=== PATIENT | male | born 1990 | race Caucasian/White ===

== ENCOUNTER 2020-04-29 10:02 | Emergency (ER) | payer SELFPAY ==
[2020-04-29 10:10] VITALS: BP 160/96; PULSE 67; RESP 16; TEMP 36.2; O2SAT 99; BMI 18.6
--- NOTE | 2020-04-29 10:36 | W.ED.DENTAL ---
HPI - Dental/Oral General: Chief complaint: Dental/Oral Stated complaint: POSS DENTAL PAIN Time Seen by Provider: 04/29/20 10:09 History of Present Illness: HPI Narrative: Patient complains about jaw pain right side hurts to eat denies that hot and cold bothers teeth does have wheezing to still down the right side left side is starting to break through the skin Teeth map: 1. Onset (ago): day(s) Duration: constant Severity: moderate Severity scale (1-10): 5 Relieving factors: nothing Exacerbating factors: chewing Context: history of dental caries Associated symptoms: Reports no associated symptoms Treatment prior to arrival: oral analgesic [facility] ED PFSH: Medical History (Updated 04/29/20 @ 10:39 by JAYESH Simmons) Epilepsy Family History Mother Multiple sclerosis Social History Smoking and tobacco status: current every day smoker Alcohol intake: current Alcohol intake frequency: other Physical Exam Const: COMMON NORMALS: no acute distress HENMT: TEETH & GINGIVA IMAGES: 1. Pain swelling appears possibly be impacted tooth 2. Pain Psych: COMMON NORMALS: mental status grossly normal Course Vital Signs: Vital signs: Vital Signs Temperature 97.2 F L 04/29/20 10:10 Pulse Rate 57 L 04/29/20 11:00 Respiratory Rate 18 04/29/20 11:00 Blood Pressure 129/80 04/29/20 11:00 Pulse Oximetry 98 04/29/20 11:00 Discharge Plan Discharge Patient Disposition: Home Clinical Impression: Dental caries Condition: Stable Prescriptions: New tramadol 50 mg tablet 50 mg PO Q8H PRN (Reason: pain) Qty: 10 RF: 0 clindamycin HCl 300 mg capsule 300 mg PO TID 7 Days Qty: 21 RF: 0 Discharge Orders: Discharge Order (Routine); Ordered 04/29/20 Ordered By: Kale Awan Discharge Diet: Usual diet Discharge Activity: Increase activity as tolerated Patient Instructions: Dental Caries (ED) Activity Restrictions/Additional Instructions: Follow-up with medical provider as directed. Take medications as prescribed. Return to the ER or your medical provider if condition worsens. Please read and understand discharge instructions. If any questions ask please. Follow-up dentist as soon as possible Coding Level of Care Code ED Full Charge Bookkeeper for Chg Fwd Exam Expanded Problem Focused
[2020-04-29 11:00] VITALS: BP 129/80; PULSE 57; RESP 18; O2SAT 98
== END 2020-04-29 11:11 | disposition home or self-care (01) ==
PROVIDERS: Emergency Provider Nurse Practitioner Family
DX: K02.9 Dental caries, unspecified (principal); F17.210 Nicotine dependence, cigarettes, uncomplicated
CPT/HCPCS: 12345; 99281

== ENCOUNTER 2020-09-07 12:39 | Emergency (ER) | payer SELFPAY ==
[2020-09-07 12:48] VITALS: BP 130/85; PULSE 80; RESP 14; TEMP 36.7; O2SAT 98; BMI 19.3
--- NOTE | 2020-09-07 12:56 | ED_ITS ---
HPI - Dental/Oral General: Chief complaint: Dental/Oral Stated complaint: Pain/swelling on left side of mouth Time Seen by Provider: 09/07/20 12:42 Source: patient Mode of arrival: ambulatory Limitations: no limitations History of Present Illness: HPI Narrative: Patient is a nice 30-year-old male who presents to ED today with complaints of dental pain, a cracked tooth, and facial swelling. Patient states he has noticed over the last few days pain to one of his right lower molars. He states when he woke up this morning he noticed the right side of his face was swollen. He has not been running fevers. Patient is still able to eat and drink normally. MD Complaint: tooth pain and tooth injury Teeth map: 1. cracked tooth; pain Onset (ago): day(s) Duration: constant Severity: moderate Associated symptoms: Denies ear or mastoid pain or fever(s) Review of Systems Const: Denies: fever(s) or chills ENMT: Reports: dental pain; Denies: swelling of lips/tongue, bleeding gums, ear or mastoid pain or nasal congestion Card: Denies: chest pain Resp: Denies: dyspnea GI: Denies: nausea or vomiting Musc: Denies: neck pain Skin/Breast: Denies: rash Neuro: Denies: headache(s) PFS ED PFSH: Medical History (Updated 09/07/20 @ 12:56 by PAGE Zee) Epilepsy Family History Mother Multiple sclerosis Social History Smoking and tobacco status: current every day smoker Alcohol intake: current Alcohol intake frequency: other Physical Exam Const: COMMON NORMALS: no acute distress, average body habitus, patient oriented x3, no limitations, healthy appearing, alert and well nourished HENMT: COMMON NORMALS: normocephalic and atraumatic HEAD & SCALP: normocephalic and atraumatic FACE & SINUS: other (R sided lower facial swelling; no abscess; no submandibular swelling) TEETH & GINGIVA: Yes other (floor of mouth is soft and non-elevated ) THROAT: posterior oropharynx normal Neck/C-Spine: COMMON NORMALS: full ROM and no lymphadenopathy Resp: COMMON NORMALS: normal respiratory effort and clear to auscultation bilaterally AUSCULTATION: clear to auscultation bilaterally Cardio: COMMON NORMALS: regular rate and regular rhythm RATE: regular rate RHYTHM: regular rhythm Neuro: COMMON NORMALS: patient oriented x3 SENSORIUM/ORIENTATION: Yes alert Skin: COMMON NORMALS: no rashes or lesions noted GENERAL SKIN EXAM: no rashes or lesions noted Course Vital Signs: Vital signs: Vital Signs Temperature 98.0 F 09/07/20 12:48 Pulse Rate 80 09/07/20 12:48 Respiratory Rate 14 09/07/20 12:48 Blood Pressure 130/85 09/07/20 12:48 Pulse Oximetry 98 09/07/20 12:48 Discharge Plan Discharge Patient Disposition: Home Clinical Impression: Cracked tooth, Dental infection Condition: Stable Prescriptions: New penicillin V potassium 500 mg tablet 500 mg PO Q8H 7 Days Qty: 21 RF: 0 No Action tramadol 50 mg tablet 50 mg PO Q8H PRN (Reason: pain) Qty: 10 RF: 0 Discharge Orders: Discharge ED (Routine); Ordered 09/07/20 Ordered By: Sulema Arciniega Patient Instructions: Dental Abscess (ED), Dental Caries (ED), Toothache (ED) Activity Restrictions/Additional Instructions: As discussed please contact your dentist on Wednesday to schedule a follow-up appointment. You may return to the emergency department for worsening pain or worsening facial swelling despite antibiotics. Coding Level of Care Code ED Medical Coordinator Pesticide Use for Apolinar Antunez
== END 2020-09-07 13:02 | disposition home or self-care (01) ==
PROVIDERS: Emergency Provider Physician Assistant
DX: K03.81 Cracked tooth (principal); K04.7 Periapical abscess without sinus; F17.210 Nicotine dependence, cigarettes, uncomplicated
CPT/HCPCS: 12345; 99281

== ENCOUNTER → 2023-05-23 14:26 | Outpatient (BNVA) | payer OTHER, SELFPAY | PROVIDERS: Visit Provider Registered Nurse Neonatal Intensive Care | DX: S99.921A Unspecified injury of right foot, initial encounter (principal); W22.8XXA Striking against or struck by other objects, initial encounter | CPT/HCPCS: 73630 ==

== ENCOUNTER → 2024-10-04 12:49 | Outpatient (BNVA) | payer BC, SELFPAY | PROVIDERS: Visit Provider Family Medicine | DX: R39.9 Unspecified symptoms and signs involving the genitourinary system (principal) | CPT/HCPCS: 81000 ==

== ENCOUNTER → 2024-11-30 11:20 | Outpatient (BNVA) | payer BC, SELFPAY | DX: R39.15 Urgency of urination (principal); R39.9 Unspecified symptoms and signs involving the genitourinary system | CPT/HCPCS: 81000; 87086 ==

== ENCOUNTER 2024-12-20 15:57 | Emergency (ER) | payer SELFPAY ==
[2024-12-20 16:25] VITALS: BP 141/73; PULSE 68; RESP 16; TEMP 36.5; O2SAT 98; BMI 18.6
[2024-12-20 16:39] LABS: Basophils # 0.1 10^3/uL (0.0-0.1); Basophils % 1.2 %; Eosinophils # 0.2 10^3/uL (0.0-0.8); Eosinophils % 2.5 %; Hematocrit 44.7 % (37-53); Lymphocytes # 2.4 10^3/uL (0.8-4.8); Lymphocytes % 32.7 %; Mean Corpuscular HGB Conc 33.6 g/dL (30-55); Mean Corpuscular Hemoglobin 30.4 pg (27-33); Mean Corpuscular Volume 90.7 fl (82-101); Mean Platelet Volume 10.3 fL (7.4-10.4); Monocytes # 0.7 10^3/uL (0.2-0.9); Neutrophils # 3.91 10^3/uL (1.8-7.7); Neutrophils % 53.3 %; Nucleated Red Blood Cells % 0 %; Platelet Count 214 10^3/cmm (157-399); Red Blood Count 4.93 10^6/uL (3.85-5.65); Red Cell Distribution Width 13.1 % (12.1-15.1); White Blood Count 7.32 10^3/uL (3.29-11.43)
[2024-12-20 17:13] LABS: Alanine Aminotransferase 18 U/L (0-41); Albumin Level 4.7 g/dL (3.5-5.2); Alkaline Phosphatase 58 U/L (40-130); Anion Gap 16.8 (5-19); Aspartate Amino Transferase 21 U/L (0-40); Blood Urea Nitrogen 16 mg/dL (6-20); Calcium 9.6 mg/dL (8.5-10.5); Carbon Dioxide 25 mmol/L (22-29); Chloride 102 mmol/L (98-107); Creatinine Clr Calc Pharmacy 88.4505; Globulin 2.6 g/dL (1.3-4.6); Glomerular Filtration Rate 86.6 mL/min (90-130); Glucose 104 mg/dL (65-115); Lipase 27 U/L (13-60); Osmolality Calculated 291 mOsm/kg (285-295); Potassium 3.8 mmol/L (3.5-5.1); Sodium 140 mmol/L (136-145); Total Bilirubin 0.7 mg/dL (0.15-1.2); Total Protein 7.3 g/dL (6.6-8.7)
--- NOTE | 2024-12-20 17:28 | ECG_ITS ---
[facility] Test Date: 2024-12-20 Pat Name: Agus Ratliff Department: Room: Gender: Male Hand Sample Maker: : 1990 Requested By: Zaria Melton Order Number: [id number] Louisa MD: VA LING Measurements Intervals [place] Rate: 48 P: 53 AL: 102 QRS: 97 QRSD: 111 T: 70 QT: 376 QTc: 339 Interpretive Statements SINUS BRADYCARDIA WITH SHORT AL INTERVAL BORDERLINE RIGHT AXIS DEVIATION [QRS AXIS > 90] MODERATE INTRAVENTRICULAR CONDUCTION DELAY [110+ ms QRS DURATION] Compared to ECG 05/30/2019 00:17:28 Intraventricular conduction delay now present Electronically Signed On 12-21-2024 23:31:15 CDT by VA LING [email or web address]
--- NOTE | 2024-12-20 17:37 | ED_ITS ---
Documented by User: Zaria Melton MD 12/20/24 17:43 HPI - Weakness 2 General: Chief complaint: Weakness Stated complaint: light headed, dizzy Time Seen by Provider: 12/20/24 17:32 Source: patient Mode of arrival: ambulatory Limitations: no limitations History of Present Illness: 34-year-old male states he had a syncopa l event earlier today states that he had felt lightheaded got up and passed out states he did hit his posterior head has a small hematoma complains of slight headache. States he has been having urinary symptoms for sometimes burning when he urinates denies any testicle pain. Denies any chest pain blood pressure here is normal Associated symptoms: Reports dysuria; Denies chest pain, chills, fever(s), headache(s), nausea or vomiting Review of Systems 2 Const: Denies: fever(s), chills, body aches or change in appetite ENMT: Denies: throat pain or dental pain Card: Denies: chest pain Resp: Denies: dyspnea GI: Denies: abdominal pain, nausea, vomiting or diarrhea : Reports: dysuria Musc: Denies: neck pain or back pain Skin/Breast: Denies: rash Neuro: Denies: headache(s) PFSH ED 2 PFSH: Medical History (Updated 12/20/24 @ 18:38 by Tracy Ha MD) Epilepsy Family History Mother Multiple sclerosis Social History Smoking and tobacco/nicotine status: never used tobacco/nicotine Alcohol intake: current Alcohol intake frequency: other Substance/Drug Use: current Substance/Drug use frequency: other Physical Exam 2 Const: COMMON NORMALS: no acute distress, patient oriented x3 and healthy appearing HENMT: COMMON NORMALS: normocephalic and atraumatic HEAD & SCALP: n ormocephalic and atraumatic Eye: COMMON NORMALS: conjunctivae normal CONJUNCTIVA: Yes conjunctivae normal Neck/C-Spine: COMMON NORMALS: full ROM and supple Chest: COMMONS NORMALS: normal inspection of the chest and normal palpation of entire chest wall Resp: COMMON NORMALS: normal respiratory effort, No retractions, No use of accessory muscles and clear to auscultation bilaterally AUSCULTATION: clear to auscultation bilaterally Cardio: COMMON NORMALS: regular rate, regular rhythm and No murmurs present (Cardio) RATE: regular rate RHYTHM: regular rhythm GI: COMMON NORMALS: Normal to inspection, nondistended, normoactive bowel sounds present, Soft to palpation, non-tender and no masses PALPATION: Yes Soft to palpation Extremity: COMMON NORMALS: normal to inspection and full ROM Neuro: COMMON NORMALS: patient oriented x3, moves all extremities and no focal motor deficits Psych: COMMON NORMALS: mental status grossly normal, Normal thought process present and cooperative THOUGHT PROCESS: Normal thought process present Skin: COMMON NORMALS: no rashes or lesions noted and no wounds GENERAL SKIN EXAM: no rashes or lesions noted Course 2 Vital Signs: Vital signs: Vital Signs Temperature 97.7 F 12/20/24 16:25 Pulse Rate 57 L 12/20/24 18:25 Respiratory Rate 16 12/20/24 16:25 Blood Pressure 127/63 12/20/24 18:25 Pulse Oximetry 97 12/20/24 18:25 Oxygen Delivery Me thod Room Air 12/20/24 16:25 MDM - Weakness Medical Records I reviewed the patient's medical records. Lab Data I reviewed the patient's lab results. 12/20/24 16:18 12/20/24 16:18 Laboratory Results WBC 7.32 10^3/uL (3.29-11.43) 12/20/24 16:18 RBC 4.93 10^6/uL (3.85-5.65) 12/20/24 16:18 Hgb 15.00 g/dL (11.27-16.99) 12/20/24 16:18 Hct 44.7 % (37-53) 12/20/24 16:18 MCV 90.7 fl (82-101) 12/20/24 16:18 MCH 30.4 pg (27-33) 12/20/24 16:18 MCHC 33.6 g/dL (30-55) 12/20/24 16:18 RDW 13.1 % (12.1-15.1) 12/20/24 16:18 Plt Count 214 10^3/cmm (157-399) 12/20/24 16:18 MPV 10.3 fL (7.4-10.4) 12/20/24 16:18 Neut % (Auto) 53.3 % 12/20/24 16:18 Lymph % (Auto) 32.7 % 12/20/24 16:18 [place] % (Auto) 10.0 % 12/20/24 16:18 Eos % (Auto) 2.5 % 12/20/24 16:18 Baso % (Auto) 1.2 % 12/20/24 16:18 Neut # (Auto) 3.91 10^3/uL (1.8-7.7) 12/20/24 16:18 Lymph # (Auto) 2.4 10^3/uL (0.8-4.8) 12/20/24 16:18 [place] # (Auto) 0.7 10^3/uL (0.2-0.9) 12/20/24 16:18 Eos # (Auto) 0.2 10^3/uL (0.0-0.8) 12/20/24 16:18 Baso # (Auto) 0.1 10^3/uL (0.0-0.1) 12/20/24 16:18 Nucleated RBC % (auto) 0 % 12/20/24 16:18 Nucleated RBCs # 0.0 /100WBC 12/20/24 16:18 Sodium 140 mmol/L (136-145) 12/20/24 16:18 Potassium 3.8 mmol/L (3.5-5.1) 12/20/24 16:18 Chloride 102 mmol/L (98-107) 12/20/24 16:18 Carbon Dioxide 25 mmol/L (22-29) 12/20/24 16:18 Anion Gap 16.8 (5-19) 12/20/24 16:18 BUN 16 mg/dL (6-20) 12/20/24 16:18 Creatinine 1.0 mg/dL (0.7-1.2) 12/20/24 16:18 GFR Calculation 86.6 mL/min (90-130) L 12/20/24 16:18 Glucose 104 mg/dL (65-115) 12/20/24 16:18 Calculated Osmolality 291 mOsm/kg (285-295) 12/20/24 16:18 Calcium 9.6 mg/dL (8.5-10.5) 12/20/24 16:18 Total Bilirubin 0.7 mg/dL (0.15-1.2) 12/20/24 16:18 AST 21 U/L (0-40) 12/20/24 16:18 ALT 18 U/L (0-41) 12/20/24 16:18 Alkaline Phosphatase 58 U/L (40-130) 12/20/24 16:18 Total Protein 7.3 g/dL (6.6-8.7) 12/20/24 16:18 Albumin 4.7 g/dL (3.5-5.2) 12/20/24 16:18 Globulin 2.6 g/dL (1.3-4.6) 12/20/24 16:18 Lipase 27 U/L (13-60) 12/20/24 16:18 Urine Color Yellow (Yellow) 12/20/24 17:31 Urine Appearance Turbid (CLEAR) A 12/20/24 17:31 Urine pH 7.5 (5-7) 12/20/24 17:31 Ur Specific [place] 1.022 (1.005-1.030) 12/20/24 17:31 Urine Protein Negative (Negative) 12/20/24 17:31 Urine Glucose (UA) Negative (Normal) 12/20/24 17:31 Urine Ketones Negative (Negative) 12/20/24 17: Urine Blood Negative (Negative) 12/20/24 17: Urine Nitrate Negative (Negative) 12/20/24 17:31 Urine Bilirubin Negative (Negative) 12/20/24 17:31 Urine Urobilinogen 1.0 mg/dL (Negative) 12/20/24 17:31 Ur Leukocyte Esterase Negative (Negative) 12/20/24 17:31 Urine RBC 0-2 /hpf (0-2) 12/20/24 17:31 Urine WBC 0-5 /hpf (0-5) 12/20/24 17:31 Ur Squamous Epith Cells 0-5 /hpf (0-5) 12/20/24 17:31 Amorphous Sediment Not Reportable 12/20/24 17:31 Urine Bacteria None seen /hpf (NONE) 12/20/24 17:31 Hyaline Casts 0-4 /lpf H 12/20/24 17:31 All radiology interpretation(s) finalized by discharge EKG Data EKG 1: I personally reviewed and interpreted this EKG as follows: EKG interpretation date: 12/20/24 EKG interpretation time: 17:28 Interpretation: sinus jonathan hr [address] elevation qrs 111 qtc 344 Discharge Plan Discharge Patient Disposition: Home Clinical Impression: Syncope Condition: Stable Prescriptions: No Action ibuprofen 800 mg tablet 800 mg PO Q8H PRN (Reason: pain) Qty: 30 0RF sulfamethoxazole-trimethoprim [Bactrim DS] 800-160 mg tablet 1 tab PO BID 21 Days Qty: 42 0RF Discharge Orders: Discharge ED (Routine); Ordered 12/20/24 Ordered By: Tracy Ha Discharge Diet: Usual diet and Regular Discharge Activity: Increase activity as tolerated Patient Instructions: Syncope (ED), Opioid Safety, Pain Management Activity Restrictions/Additional Instructions: Thank you for choosing [facility] for your healthcare needs today. You have been screened and evaluated and felt safe for discharge. Health conditions do change or evolve sometimes and as such it is important that you follow up with your Primary Doctor to be re checked, 3-5 days is a general good time frame for follow up. You are always welcome to return to the ED for re assessment if your symptoms are worsening or you have new concerns Print Language: [place] Coding Level of Care Code ED Household Assistant for Chg Fwd Related Data Previous Rx's ?Medication ?Instructions ?Recorded ibuprofen 800 mg tablet 800 mg PO Q8H PRN pain #30 t abs 09/03/24 sulfamethoxazole 800 1 tab PO BID 21 days #42 tab s 11/30/24 mg-trimethoprim 160 mg tablet (Bactrim DS) Allergies Allergy/AdvReac Type Severity Reaction Status Date / Time No Known Allergies Allergy Verified 12/20/24 16:30 Documented by User: Tracy Ha MD 12/20/24 18:39 HPI - Weakness 2 General: Chief complaint: Weakness Stated complaint: light headed, dizzy Time Seen by Provider: 12/20/24 17:32 PFSH ED 2 PFSH: Medical History (Updated 12/20/24 @ 18:38 by Tracy Ha MD) Epilepsy Family History Mother Multiple sclerosis Social History Smoking and tobacco/nicotine status: never used tobacco/nicotine Alcohol intake: current Alcohol intake frequency: other Substance/Drug Use: current Substance/Drug use frequency: other Course 2 Vital Signs: Vital signs: Vital Signs Temperature 97.7 F 12/20/24 16:25 Pulse Rate 57 L 12/20/24 18:25 Respiratory Rate 16 12/20/24 16:25 Blood Pressure 127/63 12/20/24 18:25 Pulse Oximetry 97 12/20/24 18:25 Oxygen Delivery Me thod Room Air 12/20/24 16:25 MDM - Weakness Medical Decision Making Patient care transitioned to ak at shift change. Awaiting final lab work and urinalysis. These were all negative. Urine was a bit concentrated so I have given some fluids. Follow-up with PCP. Lab Data 12/20/24 16:18 12/20/24 16:18 Laboratory Results WBC 7.32 10^3/uL (3.29-11.43) 12/20/24 16:18 RBC 4.93 10^6/uL (3.85-5.65) 12/20/24 16:18 Hgb 15.00 g/dL (11.27-16.99) 12/20/24 16:18 Hct 44.7 % (37-53) 12/20/24 16:18 MCV 90.7 fl (82-101) 12/20/24 16:18 MCH 30.4 pg (27-33) 12/20/24 16:18 MCHC 33.6 g/dL (30-55) 12/20/24 16:18 RDW 13.1 % (12.1-15.1) 12/20/24 16:18 Plt Count 214 10^3/cmm (157-399) 12/20/24 16:18 MPV 10.3 fL (7.4-10.4) 12/20/24 16:18 Neut % (Auto) 53.3 % 12/20/24 16:18 Lymph % (Auto) 32.7 % 12/20/24 16:18 [place] % (Auto) 10.0 % 12/20/24 16:18 Eos % (Auto) 2.5 % 12/20/24 16:18 Baso % (Auto) 1.2 % 12/20/24 16:18 Neut # (Auto) 3.91 10^3/uL (1.8-7.7) 12/20/24 16:18 Lymph # (Auto) 2.4 10^3/uL (0.8-4.8) 12/20/24 16:18 [place] # (Auto) 0.7 10^3/uL (0.2-0.9) 12/20/24 16:18 Eos # (Auto) 0.2 10^3/uL (0.0-0.8) 12/20/24 16:18 Baso # (Auto) 0.1 10^3/uL (0.0-0.1) 12/20/24 16:18 Nucleated RBC % (auto) 0 % 12/20/24 16:18 Nucleated RBCs # 0.0 /100WBC 12/20/24 16:18 Sodium 140 mmol/L (136-145) 12/20/24 16:18 Potassium 3.8 mmol/L (3.5-5.1) 12/20/24 16:18 Chloride 102 mmol/L (98-107) 12/20/24 16:18 Carbon Dioxide 25 mmol/L (22-29) 12/20/24 16:18 Anion Gap 16.8 (5-19) 12/20/24 16:18 BUN 16 mg/dL (6-20) 12/20/24 16:18 Creatinine 1.0 mg/dL (0.7-1.2) 12/20/24 16:18 GFR Calculation 86.6 mL/min (90-130) L 12/20/24 16:18 Glucose 104 mg/dL (65-115) 12/20/24 16:18 Calculated Osmolality 291 mOsm/kg (285-295) 12/20/24 16:18 Calcium 9.6 mg/dL (8.5-10.5) 12/20/24 16:18 Total Bilirubin 0.7 mg/dL (0.15-1.2) 12/20/24 16:18 AST 21 U/L (0-40) 12/20/24 16:18 ALT 18 U/L (0-41) 12/20/24 16:18 Alkaline Phosphatase 58 U/L (40-130) 12/20/24 16:18 Total Protein 7.3 g/dL (6.6-8.7) 12/20/24 16:18 Albumin 4.7 g/dL (3.5-5.2) 12/20/24 16:18 Globulin 2.6 g/dL (1.3-4.6) 12/20/24 16:18 Lipase 27 U/L (13-60) 12/20/24 16:18 Urine Color Yellow (Yellow) 12/20/24 17:31 Urine Appearance Turbid (CLEAR) A 12/20/24 17:31 Urine pH 7.5 (5-7) 12/20/24 17:31 Ur Specific [place] 1.022 (1.005-1.030) 12/20/24 17:31 Urine Protein Negative (Negative) 12/20/24 17:31 Urine Glucose (UA) Negative (Normal) 12/20/24 17:31 Urine Ketones Negative (Negative) 12/20/24 17:31 Urine Blood Negative (Negative) 12/20/24 17:31 Urine Nitrate Negative (Negative) 12/20/24 17: Urine Bilirubin Negative (Negative) 12/20/24 17: Urine Urobilinogen 1.0 mg/dL (Negative) 12/20/24 17:31 Ur Leukocyte Esterase Negative (Negative) 12/20/24 17:31 Urine RBC 0-2 /hpf (0-2) 12/20/24 17:31 Urine WBC 0-5 /hpf (0-5) 12/20/24 17:31 Ur Squamous Epith Cells 0-5 /hpf (0-5) 12/20/24 17:31 Amorphous Sediment Not Reportable 12/20/24 17:31 Urine Bacteria None seen /hpf (NONE) 12/20/24 17: Hyaline Casts 0-4 /lpf H 12/20/24 17:31 Discharge Plan Discharge Patient Disposition: Home Clinical Impression: Syncope Condition: Stable Prescriptions: No Action ibuprofen 800 mg tablet 800 mg PO Q8H PRN (Reason: pain) Qty: 30 0RF sulfamethoxazole-trimethoprim [Bactrim DS] 800-160 mg tablet 1 tab PO BID 21 Days Qty: 42 0RF Discharge Orders: Discharge ED (Routine); Ordered 12/20/24 Ordered By: Tracy Ha Discharge Diet: Usual diet and Regular Discharge Activity: Increase activity as tolerated Patient Instructions: Syncope (ED), Opioid Safety, Pain Management Activity Restrictions/Additional Instructions: Thank you for choosing [facility] for your healthcare needs today. You have been screened and evaluated and felt safe for discharge. Health conditions do change or evolve sometimes and as such it is important that you follow up with your Primary Doctor to be re checked, 3-5 days is a general good time frame for follow up. You are always welcome to return to the ED for re assessment if your symptoms are worsening or you have new concerns Print Language: [place] Coding Level of Care Code ED Household Assistant for Chg Fwd Related Data Previous Rx's ?Medication ?Instructions ?Recorded ibuprofen 800 mg tablet 800 mg PO Q8H PRN pain #30 t abs 09/03/24 sulfamethoxazole 800 1 tab PO BID 21 days #42 tab s 11/30/24 mg-trimethoprim 160 mg tablet (Bactrim DS) Allergies Allergy/AdvReac Type Severity Reaction Status Date / Time No Known Allergies Allergy Verified 12/20/24 16:30
--- NOTE | 2024-12-20 17:40 | CTR_ITS ---
PROCEDURE INFORMATION: Exam: CT Head Without Contrast Exam date and time: 12/20/2024 6:27 PM Age: 34 years old Clinical indication: Injury or trauma; Fall; Concussion/head injury; Without loss of consciousness; Additional info: Closed head injury TECHNIQUE: Imaging protocol: Computed tomography of the head without contrast. Radiation optimization: All CT scans at this facility use at least one of these dose optimization techniques: automated exposure control; mA and/or kV adjustment per patient size (includes targeted exams where dose is matched to clinical indication); or iterative reconstruction. COMPARISON: No relevant prior studies available. RADIATION DOSE METRICS: Total DLP (mGy-cm): 1058.65 FINDINGS: Brain: Normal. No hemorrhage. Unremarkable white matter. No mass effect. Cerebral ventricles: No ventriculomegaly. Paranasal sinuses: Visualized sinuses are unremarkable. No fluid levels. Mastoid air cells: Visualized mastoid air cells are well aerated. Bones: Unremarkable. No acute fracture. Soft tissues: Unremarkable. CT/CT head wo con* [id number] IMPRESSION: No acute intracranial abnormality.
[2024-12-20] MEDS: sodium chloride 0.9% 1,000 ML 999 ML IV ×2 (17:42→18:45)
[2024-12-20 17:56] LABS: Bilirubin Urine Negative (Negative); Blood Urine Negative (Negative); Glucose Urine UA Negative (Normal); Ketones Urine Negative (Negative); Leukocyte Esterase Urine Negative (Negative); Nitrate Urine Negative (Negative); Protein Urine Negative (Negative); Specific Gravity, Urine 1.022 (1.005-1.030); Urine Appearance Turbid (CLEAR); Urine Color Yellow (Yellow); pH Urine 7.5 (5-7)
[2024-12-20 18:01] LABS: Add Urine Microscopic? YES; Bacteria Urine None Seen /hpf; Hyaline Casts Urine 0-4 /lpf; RBC Urine 0-2 /hpf (0-2); Squamous Epithelial Cell Urine 0-5 /hpf (0-5); WBC Urine 0-5 /hpf (0-5)
[2024-12-20 18:25] VITALS: BP 127/63; PULSE 57; O2SAT 97
[2024-12-20 18:42] VITALS: BP 124/74; PULSE 56; O2SAT 98
[2024-12-20 18:57] LABS: Add Urine Culture? No
[2024-12-20 19:45] VITALS: BP 125/80; PULSE 63; O2SAT 98
== END 2024-12-20 19:37 | disposition home or self-care (01) ==
PROVIDERS: Emergency Medicine; Emergency Provider Emergency Medicine
DX: R55 Syncope and collapse (principal)
CPT/HCPCS: 36415; 70450; 80053; 81001; 83690; 85025; 93005; 96360; 96361; 99284; J7030

== ENCOUNTER 2025-06-10 10:30 | Emergency (ER) | payer SELFPAY ==
--- OUTSIDE RECORDS SUMMARY | 2025-06-10 10:35 | XMS_ITS | Clinical Summary ---
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 Gender Identity Not on file Sexual Orientation Not on file Last Filed Vital Signs Vital Sign Reading Time Taken Comments Blood Pressure 132/88 09/22/2022 10:01 AM BRAND SALES MANAGER Pulse 70 09/22/2022 10:01 AM BRAND SALES MANAGER Temperature 36.8 C (98.2 F) 09/22/2022 10:01 AM BRAND SALES MANAGER Respiratory Rate 17 09/22/2022 10:01 AM BRAND SALES MANAGER Oxygen Saturation 98% 09/22/2022 10:01 AM BRAND SALES MANAGER Inhaled Oxygen Concentration - - Weight 61.2 kg (135 lb) 09/22/2022 7:15 AM BRAND SALES MANAGER Height 177.8 cm (5' 10 ) 09/22/2022 7:15 AM BRAND SALES MANAGER Body Mass Index 19.37 09/22/2022 7:15 AM BRAND SALES MANAGER Plan of Treatment Health Maintenance Due Date Last Done Comments MMR Vaccines (1 of 1 - Standard series) 1993 DTaP,Tdap,and Td Vaccines (5 - Tdap) 2003 04/24/1997, 09/19/1996, 07/18/1996, Additional history exists Varicella Vaccines (1 of 2 - 13+ 2-dose series) 2005 Depression Screening 2010 Social Drivers of Health (SDoH) 2010 Hepatitis B Vaccines (1 of 3 - 19+ 3-dose series) 2011 HPV Vaccines (1 - 3-dose SCDM series) 2019 COVID-19 Vaccine (1 - season) 2025 Influenza Vaccine (#1) 2025 Pneumococcal Vaccine: 50+ Years (1 of 1 - PCV) 2042 Zoster Vaccines (1 of 2) 2042 RSV Vaccines (1 - 1-dose 75+ series) 2067 IPV Vaccines Completed 09/19/1996, 07/09, 01/22/1994, Additional history exists HIB Vaccines Aged Out No longer eligi ble based on patient's age to complete this topic Hepatitis A Vaccines Aged Out No long er eligible based on patient's age to complete this topic Meningococcal B Vaccine Aged Out No l onger eligible based on patient's age to complete this topic Meningococcal Vaccine Aged Out No bang leyla eligible based on patient's age to complete this topic Pneumococcal Vaccine Aged Out No long er eligible based on patient's age to complete this topic Rotavirus Vaccines Aged Out No longer eligible based on patient's age to complete this topic Care Teams Economic Consultant Relationship Specialty Start Date End Date System, Provider Not In, DO [address] [phone] PCP - General 09/22/22
--- OUTSIDE RECORDS SUMMARY | 2025-06-10 10:35 | XMS_ITS | Data Portability ---
Author Organization [facility], [facility] Address [address] [address] Assessment No assessment recorded. Plan of Treatment Reminders Order Date Submit Date Provider Last Modified By Organization Details Last Modified Time Details Appointments None recorded. Lab None recorded. Referral None recorded. Procedures None recorded. Surgeries None recorded. Imaging None recorded. Medication Orders amoxicillin 500 mg capsule 2022 023 [id number], [address], [place], [place], [id number], 3 11:47:03 Patient TargetsNo targets recorded. Patient InstructionsNo instructions recorded. Reason for Referral None Reported. 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 Medical Equipment None Reported. Allergies No known drug allergies Medications Name Sig Start Date Stop Date Status Note LastModified by Organization Details LastModified Time amoxicillin 500 mg capsule Take 2 capsules twice a day by oral route for 7 days. 2022 active Not Available Not Available Not Avai lable Vitals Date Recorded Body height Body mass index (BMI) Body weight Oxygen saturation Oxygen saturation in Arterial blood by Pulse oximetry Heart rate Respiratory rate Body temperature Provider Name and Address Organization Details Last Updated DateTime 3 175.26 cm 19.6 kg/m2 96824.7 9 g 100 % 100 % 48 /min 15 /min 97.3 [degF] Jade Myers [facility] 11:23:15 Social History None recorded. Functional Status None recorded. Mental Status None recorded. Family History Nothing Reported. Medical History No medical history recorded. Past Encounters Encounter ID Performer Location Encounter Start Date Encounter Closed Date Diagnosis/Indication Diagnosis SNOMED-CT Code Diagnosis ICD10 Code Diagnosis IMO Codes Diagnosis Note [id number] RASHAUN HAZEL PA-C [facility] ([facility]) [address] [place] [address] 08/07/2023 11:10:04 08/07/2023 15:24:29 Toothache 13152458 K08.89 Health Concerns Section Related Observation LastModified by Organization Detai ls LastModified Time None Recorded Concern Status LastModified by Organization Details LastModified Time None Recorded Advance Directives Directive None Recorded Payers Insurance Date Sequence Insurance Name Policy Number Policy Gilmore Covered Member ID Gilmore Member ID Guarantor Name 03/21/2025 1 [facility] [id number] Agus Ratliff [id number] Agus Ratliff Notes Date Note Type Note Provider Name and Address Organization Details Recorded Time 08/07/2023 text/html Generic HPI TemplateReported by PatientHPIFor location, (left side of mouth). For severity, (severe; rates pain 8/10). For duration, (all week). For alleviating factors, (nothing gives relief). For associated symptoms, (sore throat, headache).ROS as noted in the HPI RASHAUN HAZEL PA-C [address] [place], [address], [facility] 08/07/2023 11:48:18
[2025-06-10 10:43] VITALS: BP 145/92; PULSE 75; RESP 18; TEMP 36.6; O2SAT 100; BMI 18.6
--- NOTE | 2025-06-10 10:59 | ECG_ITS ---
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 Measurements Intervals [place] Rate: 71 P: 100 OH: 122 QRS: 82 QRSD: 109 T: 125 QT: 355 QTc: 387 Interpretive Statements SINUS RHYTHM Compared to ECG 12/20/2024 17:28:48 ST (T wave) deviation now present Sinus bradycardia no longer present Short OH interval no longer present Electronically Signed On 06-10-2025 14:15:14 CEMENT BREAKER by Evan Thornton M.D. [email or web address]
--- NOTE | 2025-06-10 11:00 | W.ED.GENADLT ---
HPI - General Adult General: Chief complaint: Shortness of Breath/Dyspnea Stated complaint: Chest pain and sob and bloody stool freacant peein Time Seen by Provider: 06/10/25 10:44 Source: patient Mode of arrival: ambulatory Limitations: no limitations History of Present Illness: Patient is a 34-year-old male here for multiple medical complaints. He first off tells me he is having chest pain and shortness of breath. He is admittedly anxious over the other physical complaints that he presents with today. He has not had any recent cough or congestion. He arrives satting 99% on room air and is not tachycardic. He has no known cardiac or pulmonary history. He is complaining of blood in his stools. He tells me sometimes it is bright red blood and other times it is dark red blood with black specks in it . He tells me one time he was told this could be secondary to hemorrhoids but does not believe he has hemorrhoids. He has no painful defecation. No rectal itching or masses. This has been going on for several weeks. Patient also having a complaint of urinary urgency and frequency. He states this has been going on for a year. He was initially told this could be a UTI and then also later diagnosed with prostatitis. At one point he was placed on antibiotics for several weeks for prostatitis. He has never followed up with urology. Onset (ago): unknown (varying chronicity's based on complaint) Relieving factors: none Exacerbating factors: none Associated symptoms: Reports chest pain and dyspnea; Deny headache(s), malaise, nausea, rash, palpitations, syncope or vomiting Treatments prior to arrival: none Related Data Home Medications ?Medication ?Instructions ?Recorded ?Confirmed No Known Home Medications 06/10/25 06/10/25 Allergies Allergy/AdvReac Type Severity Reaction Status Date / Time No Known Allergies Allergy Verified 06/10/25 10:50 Review of Systems Const: Denies: fever(s), chills, body aches, fatigue or malaise Eyes: Denies: change in vision or blurry vision Card: Reports: chest pain; Denies: palpitations, irregular heart rhythm, edema, swelling of feet/ankles, lightheadedness, syncope, pre-syncope, orthopnea, leg pain with exertion or acrocyanosis Resp: Reports: dyspnea; Denies: productive cough, non-productive cough, wheezing, pain on inspiration or chest congestion GI: Reports: hematochezia and melena; Denies: abdominal pain, nausea, vomiting, heartburn, diarrhea, mucus in stool, white/light colored stool or steatorrhea : Reports: urinary frequency and urinary urgency; Denies: flank pain, difficulty urinating, dysuria, urinary hesitancy, urinary dribbling, hematuria, genital pain, genital lesions, penile discharge, testicular pain, testicular mass or scrotal swelling Musc: Denies: neck pain, back pain, extremity pain, extremity swelling, joint pain, joint swelling or joint redness Skin/Breast: Denies: rash Neuro: Denies: headache(s), numbness in extremities, weakness in extremities, sensory changes or dizziness PFSH ED PFSH: Medical History Epilepsy Family History Mother Multiple sclerosis Social History Smoking and tobacco/nicotine status: never used tobacco/nicotine Alcohol intake: current Alcohol intake frequency: other Substance/Drug Use: current Substance/Drug use frequency: other Physical Exam Const: COMMON NORMALS: average body habitus, patient oriented x3, no limitations, healthy appearing, alert and well nourished GENERAL APPEARANCE: anxious ORIENTATION/CONSCIOUSNESS: Yes awake, Yes oriented to person, Yes oriented to place and Yes oriented to time HENMT: COMMON NORMALS: normocephalic and atraumatic HEAD & SCALP: normal to inspection, normocephalic and atraumatic FACE & SINUS: normal facial exam and face symmetric Eye: COMMON NORMALS: Equal, round and reactive pupils present and EOMs intact bilaterally GENERAL EYE: appearance normal, both eyes and all related structures and normal light reflex PUPIL: Yes Equal, round and reactive pupils present DIRECT OPHTHALMOSCOPY: Yes normal light reflex Neck/C-Spine: COMMON NORMALS: full ROM, no lymphadenopathy, supple, no meningeal signs and no JVD GENERAL: Yes normal visual inspection Chest: COMMONS NORMALS: normal inspection of the chest and normal palpation of entire chest wall Resp: COMMON NORMALS: normal respiratory effort and clear to auscultation bilaterally AUSCULTATION: clear to auscultation bilaterally Cardio: COMMON NORMALS: no JVD, regular rate and regular rhythm RATE: regular rate RHYTHM: regular rhythm GI: COMMON NORMALS: Normal to inspection, nondistended, normoactive bowel sounds present, Soft to palpation, non-tender, No hepatosplenomegaly present and no masses PALPATION: Yes Soft to palpation and Yes No hepatosplenomegaly present OTHER: pt refuses DAYANARA-does not feel like he will be able to give stool sample : COMMON NORMALS: Yes no CVA tenderness BLADDER/KIDNEY EXAM: Yes no CVA tenderness Back/Pelvis: COMMON NORMALS: no CVA tenderness and thoracic and lumbar spine normal to inspection Extremity: COMMON NORMALS: normal to inspection GENERAL: Yes normal exam except as noted Neuro: COMMON NORMALS: patient oriented x3 SENSORIUM/ORIENTATION: Yes alert, Yes oriented to person, Yes oriented to place and Yes oriented to time MENINGEAL SIGNS: Yes no meningeal signs Skin: COMMON NORMALS: no rashes or lesions noted GENERAL SKIN EXAM: no rashes or lesions noted Course Vital Signs: Vital signs: Vital Signs Temperature 97.8 F 06/10/25 10:43 Pulse Rate 62 06/10/25 11:03 Respiratory Rate 18 06/10/25 11:03 Blood Pressure 145/92 06/10/25 11:03 Pulse Oximetry 99 06/10/25 11:03 Oxygen Delivery Me thod Room Air 06/10/25 11:03 [facility] - General Adult Medical Decision Making Patient's vital signs are stable. Based on his complaint of chest pain, shortness of breath, urinary frequency/urgency as well as blood in his stool-CBC, CMP, D-dimer, troponin, CXR, UA were obtained today. All of these are unremarkable. His hemoglobin is 16.6-higher than his most recent back in December. Chemistry is unremarkable. His UA is clear. CXR is unremarkable. D-dimer and troponin are normal. Patient is requesting referral to urology for further evaluation of his urinary complaints which I think is reasonable. Will also refer him to general surgery for evaluation of blood in his stool. He declined DAYANARA and was not able to provide a stool sample. Abdominal exam was benign-did not feel patient required emergent CT imaging today. Medical Records I reviewed the patient's medical records. Lab Data I reviewed the patient's lab results. 06/10/25 10:49 06/10/25 10:49 Laboratory Results WBC 6.13 10^3/uL (3.29-11.43) 06/10/25 10:49 RBC 5.45 10^6/uL (3.85-5.65) 06/10/25 10:49 Hgb 16.60 g/dL (11.27-16.99) 06/10/25 10:49 Hct 47.0 % (37-53) 06/10/25 10:49 MCV 86.2 fl (82-101) 06/10/25 10:49 MCH 30.5 pg (27-33) 06/10/25 10:49 MCHC 35.3 g/dL (30-55) 06/10/25 10:49 RDW 13.6 % (12.1-15.1) 06/10/25 10:49 Plt Count 228 10^3/cmm (157-399) 06/10/25 10:49 MPV 10.2 fL (7.4-10.4) 06/10/25 10:49 Neut % (Auto) 39.4 % 06/10/25 10:49 Lymph % (Auto) 40.5 % 06/10/25 10:49 [place] % (Auto) 15.2 % 06/10/25 10:49 Eos % (Auto) 3.6 % 06/10/25 10:49 Baso % (Auto) 1.1 % 06/10/25 10:49 Neut # (Auto) 2.42 10^3/uL (1.8-7.7) 06/10/25 10:49 Lymph # (Auto) 2.5 10^3/uL (0.8-4.8) 06/10/25 10:49 [place] # (Auto) 0.9 10^3/uL (0.2-0.9) 06/10/25 10:49 Eos # (Auto) 0.2 10^3/uL (0.0-0.8) 06/10/25 10:49 Baso # (Auto) 0.1 10^3/uL (0.0-0.1) 06/10/25 10:49 Nucleated RBC % (auto) 0 % 06/10/25 10:49 Nucleated RBCs # 0.0 /100WBC 06/10/25 10:49 D-Dimer <= 0.27 ug/mLFEU (0-0.59) 06/10/25 10:49 Sodium 139 mmol/L (136-145) 06/10/25 10:49 Potassium 4.2 mmol/L (3.5-5.1) 06/10/25 10:49 Chloride 105 mmol/L (98-107) 06/10/25 10:49 Carbon Dioxide 20 mmol/L (22-29) L 06/10/25 10:49 Anion Gap 18.2 (5-19) 06/10/25 10:49 BUN 17 mg/dL (6-20) 06/10/25 10:49 Creatinine 1.0 mg/dL (0.7-1.2) 06/10/25 10:49 GFR Calculation 86.6 mL/min (90-130) L 06/10/25 10:49 Glucose 100 mg/dL (65-115) 06/10/25 10:49 Calculated Osmolality 290 mOsm/kg (285-295) 06/10/25 10:49 Calcium 10.5 mg/dL (8.5-10.5) 06/10/25 10:49 Total Bilirubin 0.6 mg/dL (0.15-1.2) 06/10/25 10:49 AST 24 U/L (0-40) 06/10/25 10:49 ALT 18 U/L (0-41) 06/10/25 10:49 Alkaline Phosphatase 68 U/L (40-130) 06/10/25 10:49 Troponin T Baseline < 6 ng/L (0-15) 06/10/25 10:49 Total Protein 8.0 g/dL (6.6-8.7) 06/10/25 10:49 Albumin 5.0 g/dL (3.5-5.2) 06/10/25 10:49 Globulin 3.0 g/dL (1.3-4.6) 06/10/25 10:49 Urine Color Yellow (Yellow) 06/10/25 11:49 Urine Appearance Clear (CLEAR) 06/10/25 11:49 Urine pH 8.5 (5-7) A 06/10/25 11:49 Ur Specific [place] 1.015 (1.005-1.030) 06/10/25 11:49 Urine Protein Negative (Negative) 06/10/25 11:49 Urine Glucose (UA) Negative (Normal) 06/10/25 11:49 Urine Ketones Negative (Negative) 06/10/25 11:49 Urine Blood Negative (Negative) 06/10/25 11:49 Urine Nitrate Negative (Negative) 06/10/25 11:49 Urine Bilirubin Negative (Negative) 06/10/25 11:49 Urine Urobilinogen 0.2 mg/dL (Negative) 06/10/25 11:49 Ur Leukocyte Esterase Negative (Negative) 06/10/25 11:49 Urine RBC 0-2 /hpf (0-2) 06/10/25 11:49 Urine WBC 0-5 /hpf (0-5) 06/10/25 11:49 Ur Squamous Epith Cells 0-5 /hpf (0-5) 06/10/25 11:49 Amorphous Sediment Not Reportable 06/10/25 11:49 Urine Bacteria None seen /hpf (NONE) 06/10/25 11:49 Hyaline Casts 0-4 /lpf H 06/10/25 11:49 XR interpretation done by ED provider, pending radiology final review Discharge Plan Discharge Patient Disposition: Home Clinical Impression: Blood in stool, Urinary urgency Condition: Stable Prescriptions: No Action No Known Home Medications Discharge Orders: Discharge ED (Routine); Ordered 06/10/25 Ordered By: Sulema Arciniega Patient Instructions: Patient Portal & Walter Instructions Activity Restrictions/Additional Instructions: As we discussed, you did decline a digital rectal exam and was not able to provide a stool sample for testing of blood but, based on your history, we will go ahead and place case management referral for general surgery for further evaluation of need for EGD/colonoscopy based on the complaint of blood in your stool. We will refer you to urology for further evaluation of your chronic urinary urgency and frequency. Your UA today was clear. Remainder of your blood work was unremarkable. You may return to the emergency department at anytime for any further concerns you may have. Print Language: Congolese Coding Level of Care Code ED Timber Supervisor for Apolinar Antunez
[2025-06-10 11:03] VITALS: BP 145/92; PULSE 62; RESP 18; O2SAT 99
[2025-06-10 11:06] LABS: Hematocrit 47.0 % (37-53); Hemoglobin 16.60 g/dL (11.27-16.99); Mean Corpuscular HGB Conc 35.3 g/dL (30-55); Mean Corpuscular Hemoglobin 30.5 pg (27-33); Mean Corpuscular Volume 86.2 fl (82-101); Nucleated Red Blood Cells % 0 %; Platelet Count 228 10^3/cmm (157-399); Red Blood Count 5.45 10^6/uL (3.85-5.65); White Blood Count 6.13 10^3/uL (3.29-11.43)
[2025-06-10 11:17] LABS: Alanine Aminotransferase 18 U/L (0-41); Albumin Level 5.0 g/dL (3.5-5.2); Alkaline Phosphatase 68 U/L (40-130); Anion Gap 18.2 (5-19); Aspartate Amino Transferase 24 U/L (0-40); Blood Urea Nitrogen 17 mg/dL (6-20); Calcium 10.5 mg/dL (8.5-10.5); Carbon Dioxide 20 mmol/L (22-29); Chloride 105 mmol/L (98-107); Creatinine Clr Calc Pharmacy 88.4505; Globulin 3.0 g/dL (1.3-4.6); Glucose 100 mg/dL (65-115); Osmolality Calculated 290 mOsm/kg (285-295); Potassium 4.2 mmol/L (3.5-5.1); Sodium 139 mmol/L (136-145); Total Protein 8.0 g/dL (6.6-8.7)
--- NOTE | 2025-06-10 11:59 | XRR_ITS ---
PROCEDURE INFORMATION: Exam: XR Chest Exam date and time: 06/10/2025 10:59 AM Age: 34 years old Clinical indication: Shortness of breath; Additional info: SOB, first on cancelled TECHNIQUE: Imaging protocol: Radiologic exam of the chest. Views: 1 view. COMPARISON: CR XR chest 1V [id number] 05/29/2019 10:09 PM FINDINGS: Lungs: Unremarkable. No consolidation. Pleural spaces: Unremarkable. No pleural effusion. No pneumothorax. Heart/Mediastinum: Unremarkable. No cardiomegaly. Bones/joints: Unremarkable. XR/XR chest 1V portable [id number] IMPRESSION: No acute cardiopulmonary findings.
[2025-06-10 12:00] LABS: Troponin(5th) Baseline < 6 ng/L (0-15)
[2025-06-10 12:06] LABS: Glucose Urine UA Negative (Normal); Nitrate Urine Negative (Negative); Specific Gravity, Urine 1.015 (1.005-1.030)
[2025-06-10 12:11] LABS: Add Urine Microscopic? YES
--- NOTE | 2025-06-12 07:37 | DCPLANNER ---
Referral sent to [facility]ema
== END 2025-06-10 12:31 | disposition home or self-care (01) ==
PROVIDERS: Emergency Provider Physician Assistant
DX: K92.1 Melena (principal); R39.15 Urgency of urination
CPT/HCPCS: 36415; 71045; 80053; 81001; 84484; 85025; 85378; 93005; 99285